=== PATIENT | male | born 1950 | race Caucasian/White ===

== ENCOUNTER 2022-06-05 22:56 | Emergency (ER) | payer MEDICARE, OTHER ==
[~2022-06-05] VITALS: Ht 177.8 cm; Wt 79.4 kg
[2022-06-06 00:01] LABS: HEMATOCRIT 39.2 % (36.7-47.1); MEAN CORPUSCULAR HEMOGLOBIN 35.5 uug (23.8-33.4); MEAN CORPUSCULAR VOLUME 104.8 fL (73.0-96.2); PLATELET COUNT (AUTO) 152 K/uL (152-348)
[2022-06-06 00:06] LABS: CREATININE 1.3 mg/dL (0.6-1.3); POTASSIUM 4.1 mmol/L (3.5-5.1)
[2022-06-06 01:02] VITALS: BP 136/74
== END 2022-06-06 01:04 | disposition home or self-care (01) ==
LOC: ER 22:56
DX: R10.84 Generalized abdominal pain (principal); Z79.899 Other long term (current) drug therapy
CPT/HCPCS: 36415; 83605; 85025; 93005; A4663